=== PATIENT | female | born 1980 | race Caucasian/White ===

== ENCOUNTER 2016-12-16 10:42 | Emergency (ER) | payer MEDICAID, OTHER ==
[~2016-12-16] VITALS: Ht 160 cm; Wt 78.2 kg
[~2016-12-16 10:42] MED LIST: ASPI81 PO; BUPR-93 PO; INSU100V12 SQ; METF500T4 PO; PARO20TA24 PO
[2016-12-16] MEDS ORDERED: TRAM50TA4 PO (11:36)
[2016-12-16 11:41] LABS: GLUCOSE,POINT OF CARE 113 MG/DL (70-110)
[2016-12-16] MEDS ORDERED: SODIUM CHLORIDE 0.9% 1,000 ML IV ONE (12:15)
[2016-12-16] MEDS ORDERED: MORPHINE SULFATE 4 MG/ML SYRINGE IVP ONE (12:15)
[2016-12-16] MEDS ORDERED: ONDANSETRON HCL 4 MG/2 ML VIAL IVP ONE (12:15)
[2016-12-16 12:51] LABS: BASOPHILS % (AUTO) 0.3 % (0.0-2.0); EOSINOPHILS % (AUTO) 1.3 % (1.0-6.0); HEMATOCRIT 41.8 % (36-46); HEMOGLOBIN 13.9 g/dL (12.0-16.0); LYMPHOCYTES # (AUTO) 4.1 K/uL (1.0-4.8); LYMPHOCYTES % (AUTO) 34.8 % (22.0-44.0); MEAN CORPUSCULAR HEMOGLOBIN 28.7 pg (26.0-34.0); MEAN CORPUSCULAR HGB CONC 33.2 G/dL (31.0-37.0); MEAN CORPUSCULAR VOLUME 87 fL (80-100); MONOCYTES # (AUTO) 0.6 K/uL (0.1-1.0); MONOCYTES % (AUTO) 4.8 % (2.0-9.0); NEUTROPHILS # (AUTO) 6.9 K/uL (1.8-7.7); NEUTROPHILS % (AUTO) 58.8 % (40.0-70.0); PLATELET COUNT (AUTO) 366 K/uL (150-450); RED BLOOD CELL COUNT(AUTO) 4.83 MIL/uL (4.00-5.20); RED CELL DISTRIBUTION WIDTH 13.2 % (11.5-14.5); WHITE BLOOD COUNT (AUTO) 11.7 K/uL (4.5-11.0)
[2016-12-16 13:02] LABS: ANION GAP 8 mmol/L (8-16); CALCIUM, TOTAL 9.2 mg/dL (8.8-10.5); CARBON DIOXIDE 30 mmol/L (22-29); CHLORIDE 100 mmol/L (98-107); GLOMERULAR FILTR. RATE CALC > 60 mL/min (>60); POTASSIUM 3.4 mmol/L (3.5-5.1); SODIUM SERUM 138 mmol/L (136-145); UREA NITROGEN, BLOOD 8 mg/dL (7-18)
[2016-12-16 13:08] LABS: ALANINE AMINOTRANSFERASE 32 U/L (12-78); ALBUMIN 3.5 g/dL (3.4-5.0); ASPARTATE AMINOTRANSFERASE 19 U/L (15-37); BILIRUBIN,TOTAL 0.1 mg/dL (0.1-1.0); TOTAL PROTEIN, SERUM 8.1 g/dL (6.4-8.2)
[2016-12-16 13:12] LABS: PROTHROMBIN TIME 10.1 SEC (9.4-11.6)
[2016-12-16] MEDS ORDERED: POTASSIUM CHLORIDE 20 MEQ ER TABLET PO ONE (13:30)
[2016-12-16] MEDS ORDERED: HYDROmorphone 2 MG/ML SYRINGE IVP ONE (14:45)
[2016-12-16 15:02] LABS: APPEARANCE,URINE CLEAR (CLEAR); GLUCOSE, URINE (UA) NEGATIVE (NEGATIVE); KETONES,URINE NEGATIVE (NEGATIVE); LEUKOCYTE ESTERASE ,URINE NEGATIVE (NEGATIVE); OCCULT BLOOD,URINE NEGATIVE (NEGATIVE); PROTEIN,URINE NEGATIVE (NEGATIVE)
[2016-12-16 15:11] LABS: RBC,URINE 0-2 /HPF (0-2); SQUAMOUS EPITHELIAL CELL,UR Few /LPF (None Seen); WBC,URINE 0-2 /HPF (0-5)
[2016-12-16 15:21] VITALS: BP 113/75
[2016-12-16] MEDS ORDERED: KETOROLAC TROMETHAMINE 30 MG/ML VIAL IVP ONE (15:30)
== END 2016-12-16 15:55 | disposition home or self-care (01) ==
LOC: EMS 10:48
DX: N83.201 Unspecified ovarian cyst, right side (principal); E11.9 Type 2 diabetes mellitus without complications; K21.9 Gastro-esophageal reflux disease without esophagitis; Z87.891 Personal history of nicotine dependence; Z79.82 Long term (current) use of aspirin
CPT/HCPCS: 36415; 76830; 76856; 80053; 81001; 82962; 83690; 84703; 85025; 85610; 96361; 96374; 96375; 99285; J1170; J1885; J2270; J2405; J7030

== ENCOUNTER 2017-02-06 09:54 | Emergency (ER) | payer OTHER ==
[~2017-02-06] VITALS: Ht 157.5 cm; Wt 77.1 kg
[~2017-02-06 09:54] MED LIST changes: +TRAM50TA4 PO
[2017-02-06] MEDS ORDERED: LIRA0.6P SQ (10:02)
[2017-02-06] MEDS ORDERED: AMOX TR/POT CLAV 875 MG/125 MG TABLET PO ONE (10:30)
[2017-02-06] MEDS ORDERED: OxyCODONE HCL/ACETAMINOPHEN 5-325 MG TABLET PO ONE (10:30)
[2017-02-06] MEDS ORDERED: ONDANSETRON HCL 4 MG TABLET PO ONE (10:30)
[2017-02-06] MEDS ORDERED: POVIDONE-IODINE 15 ML SOLUTION UD TP ONE (11:15)
[2017-02-06 12:34] VITALS: BP 124/71
== END 2017-02-06 12:37 | disposition home or self-care (01) ==
LOC: EMS 10:01
DX: S61.051A Open bite of right thumb without damage to nail, initial encounter (principal); E11.9 Type 2 diabetes mellitus without complications; K21.9 Gastro-esophageal reflux disease without esophagitis; Z87.891 Personal history of nicotine dependence; W55.01XA Bitten by cat, initial encounter; Y93.89 Activity, other specified; Y92.89 Other specified places as the place of occurrence of the external cause; Y99.8 Other external cause status
CPT/HCPCS: 73130; 99284; Q0162

== ENCOUNTER 2017-03-30 09:34 | Emergency (ER) | payer OTHER ==
[~2017-03-30] VITALS: Ht 157.5 cm; Wt 78.2 kg
[~2017-03-30 09:34] MED LIST changes: -INSU100V12 SQ; +LIRA0.6P SQ
[2017-03-30] MEDS ORDERED: HUMLIS7525 SQ (09:42)
[2017-03-30] MEDS ORDERED: INSLAN SQ (09:42)
[2017-03-30 09:47] LABS: GLUCOSE,POINT OF CARE 360 MG/DL (70-110)
[2017-03-30 10:11] LABS: BASOPHILS # (AUTO) 0.06 K/uL (0.00-0.20); BASOPHILS % (AUTO) 0.7 % (0.0-2.0); EOSINOPHILS # (AUTO) 0.17 K/uL (0.00-0.70); EOSINOPHILS % (AUTO) 1.87 % (1.0-6.0); HEMATOCRIT 44.5 % (36-46); HEMOGLOBIN 14.5 g/dL (12.0-16.0); LYMPHOCYTES # (AUTO) 3.4 K/uL (1.0-4.8); LYMPHOCYTES % (AUTO) 38.3 % (22.0-44.0); MEAN CORPUSCULAR HGB CONC 32.5 G/dL (31.0-37.0); MEAN CORPUSCULAR VOLUME 86 fL (80-100); MONOCYTES # (AUTO) 0.3 K/uL (0.1-1.0); MONOCYTES % (AUTO) 3.9 % (2.0-9.0); NEUTROPHILS # (AUTO) 4.9 K/uL (1.8-7.7); NEUTROPHILS % (AUTO) 55.3 % (40.0-70.0); PLATELET COUNT (AUTO) 413 K/uL (150-450); RED BLOOD CELL COUNT(AUTO) 5.17 MIL/uL (4.00-5.20); RED CELL DISTRIBUTION WIDTH 13.3 % (11.5-14.5); WHITE BLOOD COUNT (AUTO) 8.9 K/uL (4.5-11.0)
[2017-03-30 10:20] LABS: ANION GAP 12 mmol/L (8-16); CALCIUM, TOTAL 9.1 mg/dL (8.8-10.5); CARBON DIOXIDE 24 mmol/L (22-29); CHLORIDE 100 mmol/L (98-107); CREATININE 0.85 mg/dL (0.60-1.30); GLOMERULAR FILTR. RATE CALC > 60 mL/min (>60); POTASSIUM 3.7 mmol/L (3.5-5.1); SODIUM SERUM 136 mmol/L (136-145); UREA NITROGEN, BLOOD 8 mg/dL (7-18)
[2017-03-30 10:27] LABS: ALANINE AMINOTRANSFERASE 41 U/L (12-78); ALBUMIN 3.5 g/dL (3.4-5.0); ASPARTATE AMINOTRANSFERASE 18 U/L (15-37); BILIRUBIN,TOTAL 0.2 mg/dL (0.1-1.0); TOTAL PROTEIN, SERUM 8.2 g/dL (6.4-8.2)
[2017-03-30 10:37] LABS: APPEARANCE,URINE CLEAR (CLEAR); GLUCOSE, URINE (UA) >=1000 mg/dL (NEGATIVE); KETONES,URINE NEGATIVE (NEGATIVE); LEUKOCYTE ESTERASE ,URINE NEGATIVE (NEGATIVE); OCCULT BLOOD,URINE NEGATIVE (NEGATIVE); PH,URINE 5.5 (5.0-8.0); PROTEIN,URINE NEGATIVE (NEGATIVE)
[2017-03-30 10:40] LABS: RBC,URINE 0-2 /HPF (0-2); SQUAMOUS EPITHELIAL CELL,UR Few /LPF (None Seen); WBC,URINE 0-2 /HPF (0-5)
[2017-03-30] MEDS ORDERED: SODIUM CHLORIDE 0.9% 1,000 ML IV ONE (11:30)
[2017-03-30] MEDS ORDERED: ONDANSETRON HCL 4 MG/2 ML VIAL IVP ONE (11:30)
[2017-03-30] MEDS ORDERED: HYDROmorphone 2 MG/ML SYRINGE IVP ONE (11:30)
[2017-03-30] MEDS ORDERED: BARIUM SULFATE 0.1% SUSPENSION 450 ML BOTTLE PO ONE (12:15)
[2017-03-30] MEDS ORDERED: IOVERSOL 350 MG/ML 100 ML VIAL ONE (12:30)
[2017-03-30] MEDS ORDERED: SODIUM CHLORIDE 0.9% 100 ML ONE (12:30)
[2017-03-30 14:48] VITALS: BP 108/75
== END 2017-03-30 15:19 | disposition home or self-care (01) ==
LOC: EMS 09:36
DX: G89.29 Other chronic pain (principal); E11.9 Type 2 diabetes mellitus without complications; F41.9 Anxiety disorder, unspecified; F11.10 Opioid abuse, uncomplicated; K21.9 Gastro-esophageal reflux disease without esophagitis; F32.9 Major depressive disorder, single episode, unspecified; G43.909 Migraine, unspecified, not intractable, without status migrainosus; Z79.4 Long term (current) use of insulin
CPT/HCPCS: 36415; 74177; 80053; 80307; 81001; 82962; 83690; 85025; 96361; 96374; 96375; 99285; J1170; J2405; J7030; J7050; Q9967; Z7610

== ENCOUNTER 2018-05-22 10:20 | Emergency (ER) | payer OTHER ==
[~2018-05-22] VITALS: Ht 160 cm; Wt 86.0 kg
[~2018-05-22 10:20] MED LIST changes: +HUMLIS7525 SQ; +INSLAN SQ; -METF500T4 PO; +METF500T6 PO
[2018-05-22 10:44] LABS: GLUCOSE,POINT OF CARE 352 MG/DL (70-110)
[2018-05-22] MEDS ORDERED: IBUP-2070 PO (10:52)
[2018-05-22] MEDS ORDERED: INSU100V SQ (10:52)
[2018-05-22] MEDS ORDERED: INSLAN SQ (10:52)
[2018-05-22] MEDS ORDERED: METHOCARBAMOL 500 MG TABLET PO ONE (12:45)
[2018-05-22] MEDS ORDERED: KETOROLAC TROMETHAMINE 60 MG/2 ML VIAL IM ONE (12:45)
[2018-05-22 14:15] VITALS: BP 111/68
== END 2018-05-22 14:17 | disposition home or self-care (01) ==
LOC: EMS 10:25
DX: M25.512 Pain in left shoulder (principal); F41.9 Anxiety disorder, unspecified; F32.9 Major depressive disorder, single episode, unspecified; E11.9 Type 2 diabetes mellitus without complications; G43.909 Migraine, unspecified, not intractable, without status migrainosus; M79.7 Fibromyalgia; Z90.49 Acquired absence of other specified parts of digestive tract; Z90.710 Acquired absence of both cervix and uterus; Z98.51 Tubal ligation status; Z87.891 Personal history of nicotine dependence; Z79.4 Long term (current) use of insulin
CPT/HCPCS: 82962; 96372; 99283; J1885

== ENCOUNTER 2019-10-20 17:27 | Inpatient (IN) | payer OTHER ==
[~2019-10-20] VITALS: Ht 162.6 cm; Wt 79.3 kg
[~2019-10-20 17:27] MED LIST changes: -ASPI81 PO; -BUPR-93 PO; -HUMLIS7525 SQ; +IBUP-2070 PO; +INSU100V SQ; -METF500T6 PO; -PARO20TA24 PO
[2019-10-20] MEDS ORDERED: NITR0.4T50 SL (17:42)
[2019-10-20] MEDS ORDERED: PREG50 PO (17:42)
[2019-10-20] MEDS ORDERED: HYDR-4455 PO (17:42)
[2019-10-20] MEDS ORDERED: DULO60CA44 PO (17:42)
[2019-10-20 17:49] LABS: GLUCOSE,POINT OF CARE 199 MG/DL (70-110)
[2019-10-20] MEDS ORDERED: IOVERSOL 320 MG/ML 100 ML VIAL ONE (17:58)
[2019-10-20] MEDS ORDERED: SODIUM CHLORIDE 0.9% 100 ML ONE (17:59)
[2019-10-20 18:07] LABS: BASOPHILS % (AUTO) 0.6 % (0.0-2.0); HEMATOCRIT 39.3 % (36-46); HEMOGLOBIN 13.2 g/dL (12.0-16.0); LYMPHOCYTES # (AUTO) 3.5 K/uL (1.0-4.8); LYMPHOCYTES % (AUTO) 36.6 % (22.0-44.0); MEAN CORPUSCULAR HEMOGLOBIN 28.3 pg (26.0-34.0); MEAN CORPUSCULAR HGB CONC 33.6 G/dL (31.0-37.0); MEAN CORPUSCULAR VOLUME 84 fL (80-100); MONOCYTES # (AUTO) 0.4 K/uL (0.1-1.0); MONOCYTES % (AUTO) 4.5 % (2.0-9.0); NEUTROPHILS # (AUTO) 5.2 K/uL (1.8-7.7); NEUTROPHILS % (AUTO) 54.3 % (40.0-70.0); PLATELET COUNT (AUTO) 412 K/uL (150-450); RED BLOOD CELL COUNT(AUTO) 4.67 MIL/uL (4.00-5.20); RED CELL DISTRIBUTION WIDTH 13.1 % (11.5-14.5)
[2019-10-20 18:19] LABS: ANION GAP 5 mmol/L (8-16); CALCIUM, TOTAL 8.7 mg/dL (8.8-10.5); CARBON DIOXIDE 29 mmol/L (22-29); CHLORIDE 103 mmol/L (98-107); CREATININE 0.69 mg/dL (0.60-1.30); GLOMERULAR FILTR. RATE CALC > 60 mL/min (>60); GLUCOSE,RANDOM 192 mg/dL (70-110); POTASSIUM 3.9 mmol/L (3.5-5.1); SODIUM SERUM 137 mmol/L (136-145); UREA NITROGEN, BLOOD 13 mg/dL (7-18)
[2019-10-20 18:27] LABS: ALANINE AMINOTRANSFERASE 24 U/L (12-78); ALBUMIN 3.1 g/dL (3.4-5.0); ALKALINE PHOSPHATASE 142 U/L (46-116); ASPARTATE AMINOTRANSFERASE 15 U/L (15-37); BILIRUBIN,TOTAL 0.1 mg/dL (0.1-1.0); HCG,QUANTITATIVE < 1 mIU/mL (0-6); TOTAL PROTEIN, SERUM 7.5 g/dL (6.4-8.2)
[2019-10-20 18:32] LABS: PROTHROMBIN TIME 9.9 SEC (9.4-11.6)
[2019-10-20] MEDS ORDERED: HYDR-4061 PO (19:55)
[2019-10-20] MEDS ORDERED: ASPIRIN 325 MG TABLET PO ONE ×2 (20:00)
[2019-10-20] MEDS ORDERED: ACETAMINOPHEN 325 MG TABLET PO PRN ×2 (20:00→22:45)
[2019-10-20] MEDS ORDERED: ONDANSETRON HCL 4 MG/2 ML VIAL IVP PRN ×2 (20:00→22:45)
[2019-10-20] MEDS ORDERED: 0.9% SODIUM CHLORIDE 10 ML SYRINGE IVP PRN (20:00)
[2019-10-20] MEDS ORDERED: IBUPROFEN 800 MG TABLET PO ONE (20:30)
[2019-10-20 22:30] VITALS: BP 110/74
[2019-10-20] MEDS ORDERED: HYDROCODONE/ACETAMINOPHEN 5-325 MG TABLET PO PRN (22:45)
[2019-10-20] MEDS ORDERED: MAGNESIUM HYDROXIDE SUSPENSION 30 ML UDCUP PO PRN (22:45)
[2019-10-20] MEDS ORDERED: MORPHINE SULFATE 2 MG/ML SYRINGE IVP PRN (22:45)
[2019-10-20] MEDS ORDERED: ZOLPIDEM TARTRATE 5 MG TABLET PO PRN (22:45)
[2019-10-20] MEDS ORDERED: SUMAtriptan SUCCINATE 25 MG TABLET PO PRN (22:45)
[2019-10-20] MEDS ORDERED: DEXTROSE 50%-WATER 25 GM/50 ML SYRINGE IVP PRN (22:45)
[2019-10-20] MEDS ORDERED: BISACODYL 10 MG RECTAL RECTAL SUPPOSITORY PR PRN (22:45)
[2019-10-20] MEDS ORDERED: PNEUMOCOCCAL VACCINE POLYVALENT 0.5 ML VIAL [PPSV23] IM ONE (23:00)
[2019-10-20 23:09] LABS: GLUCOMETER DEV NAME(LOC) 5N.1; GLUCOSE,POINT OF CARE 171 MG/DL (70-110)
[2019-10-20] MEDS: HEPARIN SODIUM,PORCINE 5,000 UNITS/ML VIAL SQ SCH (23:44)
[2019-10-21 04:15] VITALS: BP 101/61
[2019-10-21 07:01] LABS: BASOPHILS % (AUTO) 0.6 % (0.0-2.0); EOSINOPHILS % (AUTO) 4.2 % (1.0-6.0); HEMATOCRIT 37.2 % (36-46); HEMOGLOBIN 12.8 g/dL (12.0-16.0); LYMPHOCYTES # (AUTO) 3.7 K/uL (1.0-4.8); LYMPHOCYTES % (AUTO) 39.2 % (22.0-44.0); MEAN CORPUSCULAR HEMOGLOBIN 28.7 pg (26.0-34.0); MEAN CORPUSCULAR HGB CONC 34.4 G/dL (31.0-37.0); MEAN CORPUSCULAR VOLUME 84 fL (80-100); MONOCYTES # (AUTO) 0.5 K/uL (0.1-1.0); MONOCYTES % (AUTO) 4.9 % (2.0-9.0); NEUTROPHILS # (AUTO) 4.9 K/uL (1.8-7.7); NEUTROPHILS % (AUTO) 51.1 % (40.0-70.0); PLATELET COUNT (AUTO) 378 K/uL (150-450); RED BLOOD CELL COUNT(AUTO) 4.45 MIL/uL (4.00-5.20); RED CELL DISTRIBUTION WIDTH 13.2 % (11.5-14.5)
[2019-10-21] MEDS: INSULIN LISPRO 100 UNITS/ML SQ PRN ×2 (07:10→12:17)
[2019-10-21 07:25] LABS: ALANINE AMINOTRANSFERASE 22 U/L (12-78); ALBUMIN 2.8 g/dL (3.4-5.0); ALKALINE PHOSPHATASE 134 U/L (46-116); ANION GAP 5 mmol/L (8-16); ASPARTATE AMINOTRANSFERASE 13 U/L (15-37); BILIRUBIN,TOTAL 0.3 mg/dL (0.1-1.0); CALCIUM, TOTAL 8.6 mg/dL (8.8-10.5); CARBON DIOXIDE 29 mmol/L (22-29); CHLORIDE 103 mmol/L (98-107); CREATININE 0.68 mg/dL (0.60-1.30); GLOMERULAR FILTR. RATE CALC > 60 mL/min (>60); GLUCOSE,RANDOM 200 mg/dL (70-110); POTASSIUM 3.8 mmol/L (3.5-5.1); SODIUM SERUM 137 mmol/L (136-145); UREA NITROGEN, BLOOD 9 mg/dL (7-18)
[2019-10-21 07:55] VITALS: BP 103/74
[2019-10-21] MEDS ORDERED: PANTOPRAZOLE SODIUM 40 MG DR TABLET PO SCH (09:00)
[2019-10-21] MEDS ORDERED: DULoxetine HCL 60 MG CAPSULE PO SCH (09:00)
[2019-10-21] MEDS ORDERED: DOCUSATE SODIUM 100 MG CAPSULE PO SCH (09:00)
[2019-10-21] MEDS ORDERED: INSULIN GLARGINE,HUM.REC.ANLOG 100 UNITS/ML SQ SCH (09:00)
[2019-10-21] MEDS ORDERED: PREGABALIN 50 MG CAPSULE PO SCH (09:00)
[2019-10-21] MEDS: HEPARIN SODIUM,PORCINE 5,000 UNITS/ML VIAL SQ SCH (09:02)
[2019-10-21] MEDS ORDERED: SUMA25TA9 PO (09:53)
[2019-10-21 11:50] VITALS: BP 102/56
[2019-10-22 00:53] LABS: GLUCOMETER DEV NAME(LOC) 5N.1; GLUCOSE,POINT OF CARE 193 MG/DL (70-110)
[2019-10-22 00:53] LABS: GLUCOMETER DEV NAME(LOC) 5N.1; GLUCOSE,POINT OF CARE 343 MG/DL (70-110)
== END 2019-10-21 14:00 | disposition home or self-care (01) | DRG 47 ==
LOC: EMS 17:28 → 5N 20:11
PROVIDERS: ADMIT Internal Medicine; ATTEND Internal Medicine
DX: G45.9 Transient cerebral ischemic attack, unspecified (principal); E11.9 Type 2 diabetes mellitus without complications; F41.9 Anxiety disorder, unspecified; M79.7 Fibromyalgia; K21.9 Gastro-esophageal reflux disease without esophagitis; M19.90 Unspecified osteoarthritis, unspecified site; G43.109 Migraine with aura, not intractable, without status migrainosus; F32.9 Major depressive disorder, single episode, unspecified; Z87.891 Personal history of nicotine dependence; Z90.710 Acquired absence of both cervix and uterus; Z90.49 Acquired absence of other specified parts of digestive tract
CPT/HCPCS: 70496; 70551; 86850; 86900; 86901; 93005; 99291; J1644; J1815; J7050

== ENCOUNTER 2020-01-03 11:54 | Emergency (ER) | payer OTHER ==
[~2020-01-03] VITALS: Ht 162.6 cm; Wt 81.8 kg
[~2020-01-03 11:54] MED LIST changes: +DULO60CA44 PO; +HYDR-4061 PO; +NITR0.4T50 SL; +PREG50 PO; +SUMA25TA9 PO
[2020-01-03] MEDS ORDERED: BARIUM SULFATE 0.1% SUSPENSION 450 ML BOTTLE PO ONE (12:15)
[2020-01-03] MEDS ORDERED: SODIUM CHLORIDE 0.9% 2,000 ML IV ONE (12:15)
[2020-01-03] MEDS ORDERED: ONDANSETRON HCL 4 MG/2 ML VIAL IVP ONE (12:15)
[2020-01-03] MEDS ORDERED: HYDROmorphone 2 MG/ML SYRINGE IVP ONE (12:15)
[2020-01-03 12:18] LABS: GLUCOSE,POINT OF CARE 259 MG/DL (70-110)
[2020-01-03 12:28] LABS: BASOPHILS % (AUTO) 1.1 % (0.0-2.0); EOSINOPHILS % (AUTO) 1.3 % (1.0-6.0); HEMATOCRIT 41.1 % (36-46); HEMOGLOBIN 13.8 g/dL (12.0-16.0); LYMPHOCYTES # (AUTO) 3.6 K/uL (1.0-4.8); LYMPHOCYTES % (AUTO) 35.9 % (22.0-44.0); MEAN CORPUSCULAR HEMOGLOBIN 28.3 pg (26.0-34.0); MEAN CORPUSCULAR HGB CONC 33.5 G/dL (31.0-37.0); MEAN CORPUSCULAR VOLUME 85 fL (80-100); MONOCYTES # (AUTO) 0.4 K/uL (0.1-1.0); MONOCYTES % (AUTO) 3.8 % (2.0-9.0); NEUTROPHILS # (AUTO) 5.9 K/uL (1.8-7.7); NEUTROPHILS % (AUTO) 57.9 % (40.0-70.0); PLATELET COUNT (AUTO) 403 K/uL (150-450); RED BLOOD CELL COUNT(AUTO) 4.86 MIL/uL (4.00-5.20); RED CELL DISTRIBUTION WIDTH 14.4 % (11.5-14.5)
[2020-01-03 12:40] LABS: ANION GAP 7 mmol/L (8-16); CALCIUM, TOTAL 8.7 mg/dL (8.8-10.5); CARBON DIOXIDE 27 mmol/L (22-29); CHLORIDE 103 mmol/L (98-107); CREATININE 0.52 mg/dL (0.60-1.30); GLOMERULAR FILTR. RATE CALC > 60 mL/min (>60); GLUCOSE,RANDOM 252 mg/dL (70-110); SODIUM SERUM 137 mmol/L (136-145); UREA NITROGEN, BLOOD 13 mg/dL (7-18)
[2020-01-03 12:46] LABS: ALBUMIN 3.1 g/dL (3.4-5.0); ALKALINE PHOSPHATASE 148 U/L (46-116); ASPARTATE AMINOTRANSFERASE 14 U/L (15-37); BILIRUBIN,TOTAL 0.2 mg/dL (0.1-1.0); LIPASE 96 U/L (73-393); TOTAL PROTEIN, SERUM 7.3 g/dL (6.4-8.2)
[2020-01-03] MEDS ORDERED: SODIUM CHLORIDE 0.9% 100 ML ONE (12:50)
[2020-01-03] MEDS ORDERED: IOVERSOL 320 MG/ML 100 ML VIAL ONE (12:50)
[2020-01-03 12:58] LABS: ALANINE AMINOTRANSFERASE 28 U/L (12-78)
[2020-01-03 14:22] LABS: APPEARANCE,URINE CLEAR (CLEAR); BILIRUBIN,URINE NEGATIVE (NEGATIVE); GLUCOSE, URINE (UA) 500 mg/dL (NEGATIVE); KETONES,URINE NEGATIVE (NEGATIVE); LEUKOCYTE ESTERASE ,URINE NEGATIVE (NEGATIVE); NITRATE,URINE NEGATIVE (NEGATIVE); OCCULT BLOOD,URINE NEGATIVE (NEGATIVE); PH,URINE 5.5 (5.0-8.0); PROTEIN,URINE NEGATIVE (NEGATIVE); UROBILINOGEN,URINE 0.2 mg/dL (<=1.0)
[2020-01-03 14:33] LABS: BACTERIA,URINE None Seen /HPF (None Seen); RBC,URINE None Seen /HPF (0-2); WBC,URINE None Seen /HPF (0-5)
[2020-01-03] MEDS ORDERED: HYDROCODONE/ACETAMINOPHEN 5-325 MG TABLET PO ONE (16:30)
[2020-01-03 16:46] VITALS: BP 123/77
== END 2020-01-03 16:49 | disposition home or self-care (01) ==
LOC: EMS 11:55
DX: K52.9 Noninfective gastroenteritis and colitis, unspecified (principal); E11.65 Type 2 diabetes mellitus with hyperglycemia; R42 Dizziness and giddiness; R53.1 Weakness; G43.909 Migraine, unspecified, not intractable, without status migrainosus; K21.9 Gastro-esophageal reflux disease without esophagitis; M19.90 Unspecified osteoarthritis, unspecified site; F41.9 Anxiety disorder, unspecified; Z90.49 Acquired absence of other specified parts of digestive tract; Z90.710 Acquired absence of both cervix and uterus; Z98.51 Tubal ligation status; Z98.890 Other specified postprocedural states; Z87.891 Personal history of nicotine dependence; Z79.899 Other long term (current) drug therapy; Z79.4 Long term (current) use of insulin; Z86.73 Personal history of transient ischemic attack (TIA), and cerebral infarction without residual deficits
CPT/HCPCS: 36415; 74177; 80053; 81001; 82962; 83690; 85025; 96361; 96374; 96375; 99285; J1170; J2405; J7030; J7050; Q9967

== ENCOUNTER 2020-05-08 17:07 | Emergency (ER) | payer OTHER ==
[~2020-05-08] VITALS: Ht 162.6 cm; Wt 73.6 kg
[2020-05-08] MEDS ORDERED: QUET100T PO (17:25)
[2020-05-08] MEDS ORDERED: METF-960 PO (17:25)
[2020-05-08] MEDS ORDERED: FLUO-191 PO (17:25)
[2020-05-08] MEDS ORDERED: BUSP15 PO (17:25)
[2020-05-08] MEDS ORDERED: TIZA2CAP PO (17:25)
[2020-05-08] MEDS ORDERED: DOCU-342 PO (17:25)
[2020-05-08] MEDS ORDERED: ALPR0.5T8 PO (17:25)
[2020-05-08] MEDS ORDERED: KETOROLAC TROMETHAMINE 30 MG/ML VIAL IVP ONE (18:00)
[2020-05-08 18:44] LABS: BASOPHILS % (AUTO) 1.2 % (0.0-2.0); EOSINOPHILS % (AUTO) 1.1 % (1.0-6.0); HEMATOCRIT 43.7 % (36-46); HEMOGLOBIN 14.8 g/dL (12.0-16.0); LYMPHOCYTES % (AUTO) 37.4 % (22.0-44.0); MEAN CORPUSCULAR HEMOGLOBIN 28.7 pg (26.0-34.0); MEAN CORPUSCULAR VOLUME 84 fL (80-100); MONOCYTES # (AUTO) 0.5 K/uL (0.1-1.0); MONOCYTES % (AUTO) 3.9 % (2.0-9.0); NEUTROPHILS # (AUTO) 7.5 K/uL (1.8-7.7); NEUTROPHILS % (AUTO) 56.4 % (40.0-70.0); PLATELET COUNT (AUTO) 419 K/uL (150-450); RED BLOOD CELL COUNT(AUTO) 5.18 MIL/uL (4.00-5.20); RED CELL DISTRIBUTION WIDTH 13.3 % (11.5-14.5)
[2020-05-08 19:00] LABS: GLUCOSE,POINT OF CARE 179 MG/DL (70-110)
[2020-05-08 19:02] LABS: D-DIMER 0.54 mg/L FEU (0.00-0.50); PROTHROMBIN TIME 9.9 SEC (9.4-11.6)
[2020-05-08 19:12] LABS: B-TYPE NATRIURETIC PEPTIDE < 5 pg/mL (0-100)
[2020-05-08 19:14] LABS: APPEARANCE,URINE CLEAR (CLEAR); BILIRUBIN,URINE NEGATIVE (NEGATIVE); GLUCOSE, URINE (UA) >=1000 mg/dL (NEGATIVE); KETONES,URINE NEGATIVE (NEGATIVE); LEUKOCYTE ESTERASE ,URINE NEGATIVE (NEGATIVE); NITRATE,URINE NEGATIVE (NEGATIVE); OCCULT BLOOD,URINE NEGATIVE (NEGATIVE); PH,URINE 5.5 (5.0-8.0); PROTEIN,URINE NEGATIVE (NEGATIVE); UROBILINOGEN,URINE 0.2 mg/dL (<=1.0)
[2020-05-08 19:20] LABS: ANION GAP 15 mmol/L (8-16); CALCIUM, TOTAL 9.7 mg/dL (8.8-10.5); CARBON DIOXIDE 23 mmol/L (22-29); CHLORIDE 99 mmol/L (98-107); CREATININE 0.83 mg/dL (0.60-1.30); GLOMERULAR FILTR. RATE CALC > 60 mL/min (>60); GLUCOSE,RANDOM 238 mg/dL (70-110); POTASSIUM 3.5 mmol/L (3.5-5.1); SODIUM SERUM 137 mmol/L (136-145); UREA NITROGEN, BLOOD 10 mg/dL (7-18)
[2020-05-08 19:20] LABS: AMPHET/METH SCREEN,URINE NEGATIVE (NEGATIVE); BARBITURATE SCREEN, URINE NEGATIVE (NEGATIVE); BENZODIAZEPINES SCREEN,URINE NEGATIVE (NEGATIVE); CANNABINOID SCREEN,URINE NEGATIVE (NEGATIVE); COCAINE SCREEN,URINE NEGATIVE (NEGATIVE); METHADONE SCREEN, URINE NEGATIVE (NEGATIVE); OPIATE SCREEN,URINE NEGATIVE (NEGATIVE)
[2020-05-08 19:21] LABS: PHENCYCLIDINE SCREEN,URINE NEGATIVE (NEGATIVE)
[2020-05-08 19:25] LABS: RBC,URINE None Seen /HPF (0-2)
[2020-05-08 19:26] LABS: ALANINE AMINOTRANSFERASE 27 U/L (12-78); ALBUMIN 3.7 g/dL (3.4-5.0); ALKALINE PHOSPHATASE 164 U/L (46-116); ASPARTATE AMINOTRANSFERASE 12 U/L (15-37); BILIRUBIN,TOTAL 0.2 mg/dL (0.1-1.0); CREATINE KINASE, TOTAL ONLY 23 U/L (26-192); TOTAL PROTEIN, SERUM 8.7 g/dL (6.4-8.2)
[2020-05-08 19:26] LABS: BACTERIA,URINE None Seen /HPF (None Seen); SQUAMOUS EPITHELIAL CELL,UR Few /LPF (None Seen); WBC,URINE None Seen /HPF (0-5); YEAST,URINE None Seen /HPF (None Seen)
[2020-05-08] MEDS ORDERED: SODIUM CHLORIDE 0.9% 1,000 ML IV ONE (19:30)
[2020-05-08] MEDS ORDERED: IOVERSOL 350 MG/ML 100 ML VIAL ONE (20:04)
[2020-05-08] MEDS ORDERED: SODIUM CHLORIDE 0.9% 100 ML ONE (20:04)
[2020-05-08 21:10] VITALS: BP 104/70
== END 2020-05-08 21:52 | disposition home or self-care (01) ==
LOC: EMS 17:08
DX: R07.89 Other chest pain (principal); R11.0 Nausea; F41.9 Anxiety disorder, unspecified; F32.9 Major depressive disorder, single episode, unspecified; E11.9 Type 2 diabetes mellitus without complications; K21.9 Gastro-esophageal reflux disease without esophagitis; I25.2 Old myocardial infarction; G43.909 Migraine, unspecified, not intractable, without status migrainosus; Z90.89 Acquired absence of other organs; Z90.710 Acquired absence of both cervix and uterus; Z87.891 Personal history of nicotine dependence; Z79.84 Long term (current) use of oral hypoglycemic drugs; Z79.4 Long term (current) use of insulin
CPT/HCPCS: 36415; 71045; 71275; 80053; 80307; 81001; 82550; 82962; 83880; 84484; 85025; 85379; 85610; 85730; 93005; 96374; 99285; J1885; J7030; J7050; Q9967

== ENCOUNTER 2021-04-12 12:48 | Emergency (ER) | payer OTHER ==
[~2021-04-12] VITALS: Ht 157.5 cm; Wt 72.7 kg
[~2021-04-12 12:48] MED LIST changes: +ALPR0.5T8 PO; +AMOX1TAB16 PO; +ASPI-1450 PO; +ATOR40TA28 PO; +BUSP15 PO; +DOCU-350 PO; -DULO60CA44 PO; +FLUO-191 PO; -LIRA0.6P SQ; +METF-960 PO; -SUMA25TA9 PO; +TIZA2CAP PO; -TRAM50TA4 PO
[2021-04-12 14:22] LABS: GLUCOSE,POINT OF CARE 183 MG/DL (70-110)
[2021-04-12] MEDS ORDERED: PREG75 PO (14:42)
[2021-04-12] MEDS ORDERED: TraMADol HCL 50 MG TABLET PO ONE (14:45)
[2021-04-12 15:39] LABS: APPEARANCE,URINE CLEAR (CLEAR); BILIRUBIN,URINE NEGATIVE (NEGATIVE); GLUCOSE, URINE (UA) >=1000 mg/dL (NEGATIVE); KETONES,URINE NEGATIVE (NEGATIVE); LEUKOCYTE ESTERASE ,URINE NEGATIVE (NEGATIVE); NITRATE,URINE NEGATIVE (NEGATIVE); OCCULT BLOOD,URINE NEGATIVE (NEGATIVE); PROTEIN,URINE NEGATIVE (NEGATIVE)
[2021-04-12 16:08] LABS: BACTERIA,URINE None Seen /HPF (None Seen); RBC,URINE None Seen /HPF (0-2); WBC,URINE 0-2 /HPF (0-5); YEAST,URINE Rare /HPF (None Seen)
[2021-04-12 16:09] LABS: SQUAMOUS EPITHELIAL CELL,UR Few /LPF (None Seen)
[2021-04-12 16:32] LABS: BASOPHILS % (AUTO) 0.5 % (0.0-2.0); EOSINOPHILS % (AUTO) 2.5 % (1.0-6.0); HEMATOCRIT 39.6 % (36-46); HEMOGLOBIN 13.4 g/dL (12.0-16.0); LYMPHOCYTES # (AUTO) 3.4 K/uL (1.0-4.8); LYMPHOCYTES % (AUTO) 31.8 % (22.0-44.0); MEAN CORPUSCULAR HGB CONC 33.7 G/dL (31.0-37.0); MEAN CORPUSCULAR VOLUME 86 fL (80-100); MONOCYTES # (AUTO) 0.5 K/uL (0.1-1.0); MONOCYTES % (AUTO) 4.4 % (2.0-9.0); NEUTROPHILS # (AUTO) 6.5 K/uL (1.8-7.7); NEUTROPHILS % (AUTO) 60.8 % (40.0-70.0); PLATELET COUNT (AUTO) 399 K/uL (150-450); RED BLOOD CELL COUNT(AUTO) 4.61 MIL/uL (4.00-5.20); RED CELL DISTRIBUTION WIDTH 13.3 % (11.5-14.5)
[2021-04-12 16:45] LABS: ANION GAP 9 mmol/L (8-16); CALCIUM, TOTAL 8.7 mg/dL (8.8-10.5); CARBON DIOXIDE 28 mmol/L (22-29); CHLORIDE 103 mmol/L (98-107); CREATININE 0.73 mg/dL (0.60-1.30); GLOMERULAR FILTR. RATE CALC > 60 mL/min (>60); GLUCOSE,RANDOM 172 mg/dL (70-110); POTASSIUM 3.8 mmol/L (3.5-5.1); SODIUM SERUM 140 mmol/L (136-145); UREA NITROGEN, BLOOD 14 mg/dL (7-18)
[2021-04-12 16:50] LABS: ALANINE AMINOTRANSFERASE 24 U/L (12-78); ALBUMIN 3.3 g/dL (3.4-5.0); ALKALINE PHOSPHATASE 133 U/L (46-116); ASPARTATE AMINOTRANSFERASE 12 U/L (15-37); BILIRUBIN,TOTAL 0.3 mg/dL (0.1-1.0); CREATINE KINASE, TOTAL ONLY 27 U/L (26-192); TOTAL PROTEIN, SERUM 7.1 g/dL (6.4-8.2)
[2021-04-12 18:12] VITALS: BP 117/91
== END 2021-04-12 18:14 | disposition home or self-care (01) ==
LOC: EMS 12:51
DX: G89.29 Other chronic pain (principal); F41.9 Anxiety disorder, unspecified; M25.511 Pain in right shoulder; F32.9 Major depressive disorder, single episode, unspecified; E11.9 Type 2 diabetes mellitus without complications; K21.9 Gastro-esophageal reflux disease without esophagitis; I25.2 Old myocardial infarction; G43.909 Migraine, unspecified, not intractable, without status migrainosus; F17.210 Nicotine dependence, cigarettes, uncomplicated; Z90.710 Acquired absence of both cervix and uterus; Z79.4 Long term (current) use of insulin; Z79.82 Long term (current) use of aspirin
CPT/HCPCS: 80053; 81001; 82550; 82962; 84484; 85025; 99285

== ENCOUNTER 2021-08-02 11:48 | Emergency (ER) | payer OTHER ==
[~2021-08-02] VITALS: Ht 160 cm; Wt 72.7 kg
[~2021-08-02 11:48] MED LIST changes: -AMOX1TAB16 PO; -HYDR-4061 PO; -PREG50 PO; +PREG75 PO
[2021-08-02 14:23] LABS: BASOPHILS % (AUTO) 0.7 % (0.0-2.0); EOSINOPHILS % (AUTO) 2.7 % (1.0-6.0); HEMATOCRIT 41.7 % (36-46); HEMOGLOBIN 13.8 g/dL (12.0-16.0); LYMPHOCYTES # (AUTO) 3.7 K/uL (1.0-4.8); LYMPHOCYTES % (AUTO) 35.4 % (22.0-44.0); MEAN CORPUSCULAR HEMOGLOBIN 28.3 pg (26.0-34.0); MEAN CORPUSCULAR HGB CONC 33.1 G/dL (31.0-37.0); MEAN CORPUSCULAR VOLUME 86 fL (80-100); MONOCYTES # (AUTO) 0.4 K/uL (0.1-1.0); MONOCYTES % (AUTO) 3.8 % (2.0-9.0); NEUTROPHILS % (AUTO) 57.4 % (40.0-70.0); PLATELET COUNT (AUTO) 398 K/uL (150-450); RED BLOOD CELL COUNT(AUTO) 4.88 MIL/uL (4.00-5.20); RED CELL DISTRIBUTION WIDTH 13.6 % (11.5-14.5)
[2021-08-02 14:27] LABS: APPEARANCE,URINE CLEAR (CLEAR); BILIRUBIN,URINE NEGATIVE (NEGATIVE); GLUCOSE, URINE (UA) >=1000 mg/dL (NEGATIVE); KETONES,URINE TRACE mg/dL (NEGATIVE); LEUKOCYTE ESTERASE ,URINE NEGATIVE (NEGATIVE); NITRATE,URINE NEGATIVE (NEGATIVE); OCCULT BLOOD,URINE NEGATIVE (NEGATIVE); PROTEIN,URINE NEGATIVE (NEGATIVE); UROBILINOGEN,URINE 0.2 mg/dL (<=1.0)
[2021-08-02] MEDS ORDERED: ONDANSETRON HCL 4 MG/2 ML VIAL IVP ONE (14:30)
[2021-08-02] MEDS ORDERED: KETOROLAC TROMETHAMINE 30 MG/ML VIAL IVP ONE (14:30)
[2021-08-02] MEDS ORDERED: TIZA4TAB6 PO (14:32)
[2021-08-02] MEDS ORDERED: BUPR-49 PO (14:32)
[2021-08-02 14:36] LABS: ANION GAP 5 mmol/L (8-16); CALCIUM, TOTAL 8.8 mg/dL (8.8-10.5); CARBON DIOXIDE 28 mmol/L (22-29); CHLORIDE 101 mmol/L (98-107); CREATININE 0.69 mg/dL (0.60-1.30); GLOMERULAR FILTR. RATE CALC > 60 mL/min (>60); GLUCOSE,RANDOM 286 mg/dL (70-110); POTASSIUM 4.1 mmol/L (3.5-5.1); SODIUM SERUM 134 mmol/L (136-145); UREA NITROGEN, BLOOD 10 mg/dL (7-18)
[2021-08-02 14:47] LABS: SQUAMOUS EPITHELIAL CELL,UR Few /LPF (None Seen)
[2021-08-02 14:47] LABS: ALBUMIN 3.2 g/dL (3.4-5.0); ALKALINE PHOSPHATASE 158 U/L (46-116); ASPARTATE AMINOTRANSFERASE 22 U/L (15-37); BILIRUBIN,TOTAL 0.2 mg/dL (0.1-1.0); HCG,QUANTITATIVE < 1 mIU/mL (0-6); LIPASE 111 U/L (73-393); TOTAL PROTEIN, SERUM 7.6 g/dL (6.4-8.2)
[2021-08-02 14:49] LABS: YEAST,URINE Few /HPF (None Seen)
[2021-08-02 14:50] LABS: BACTERIA,URINE None Seen /HPF (None Seen); RBC,URINE None Seen /HPF (0-2); WBC,URINE None Seen /HPF (0-5)
[2021-08-02] MEDS ORDERED: IOHEXOL 350 MG/ML 100 ML VIAL ONE (14:50)
[2021-08-02] MEDS ORDERED: SODIUM CHLORIDE 0.9% 100 ML ONE (14:50)
[2021-08-02 14:57] LABS: ALANINE AMINOTRANSFERASE 43 U/L (12-78)
[2021-08-02 16:14] VITALS: BP 124/79
== END 2021-08-02 16:33 | disposition home or self-care (01) ==
LOC: EMS 11:48
DX: R10.31 Right lower quadrant pain (principal); R11.0 Nausea; R81 Glycosuria; F41.9 Anxiety disorder, unspecified; F32.9 Major depressive disorder, single episode, unspecified; E11.9 Type 2 diabetes mellitus without complications; K21.9 Gastro-esophageal reflux disease without esophagitis; I25.2 Old myocardial infarction; G43.909 Migraine, unspecified, not intractable, without status migrainosus; F17.210 Nicotine dependence, cigarettes, uncomplicated; Z90.710 Acquired absence of both cervix and uterus; Z90.89 Acquired absence of other organs; Z79.4 Long term (current) use of insulin; Z79.82 Long term (current) use of aspirin
CPT/HCPCS: 36415; 74177; 76856; 80053; 81001; 82962; 83690; 84702; 85025; 96374; 96375; 99285; J1885; J2405; Q9967; J7050

== ENCOUNTER 2021-08-07 21:43 | Inpatient (IN) | payer OTHER ==
[~2021-08-07] VITALS: Ht 157.5 cm; Wt 74.8 kg
[~2021-08-07 21:43] MED LIST changes: +BUPR-49 PO; -TIZA2CAP PO; +TIZA4TAB6 PO
[2021-08-07] MEDS ORDERED: IOHEXOL 350 MG/ML 100 ML VIAL ONE (21:58)
[2021-08-07] MEDS ORDERED: SODIUM CHLORIDE 0.9% 100 ML ONE (21:58)
[2021-08-07] MEDS ORDERED: SODIUM CHLORIDE 0.9% 1,000 ML IV ONE (22:30)
[2021-08-07] MEDS ORDERED: INSULIN REGULAR, HUMAN 100 UNITS/ML IVP ONE (22:30)
[2021-08-07 22:38] LABS: HEMOGLOBIN 12.6 g/dL (12.0-16.0); LYMPHOCYTES # (AUTO) 3.9 K/uL (1.0-4.8); LYMPHOCYTES % (AUTO) 37.7 % (22.0-44.0); MEAN CORPUSCULAR HEMOGLOBIN 28.6 pg (26.0-34.0); MEAN CORPUSCULAR HGB CONC 33.1 G/dL (31.0-37.0); MEAN CORPUSCULAR VOLUME 87 fL (80-100); MONOCYTES # (AUTO) 0.6 K/uL (0.1-1.0); MONOCYTES % (AUTO) 5.6 % (2.0-9.0); NEUTROPHILS # (AUTO) 5.5 K/uL (1.8-7.7); NEUTROPHILS % (AUTO) 52.7 % (40.0-70.0); PLATELET COUNT (AUTO) 369 K/uL (150-450); RED CELL DISTRIBUTION WIDTH 13.8 % (11.5-14.5)
[2021-08-07] MEDS ORDERED: ACETAMINOPHEN 325 MG TABLET PO PRN (22:45)
[2021-08-07] MEDS ORDERED: ONDANSETRON HCL 4 MG/2 ML VIAL IVP PRN ×2 (22:45→23:45)
[2021-08-07 22:46] LABS: PROTHROMBIN TIME 10.6 SEC (9.4-11.6)
[2021-08-07 22:47] LABS: ALANINE AMINOTRANSFERASE 32 U/L (12-78); ALBUMIN 2.6 g/dL (3.4-5.0); ALKALINE PHOSPHATASE 141 U/L (46-116); ANION GAP 5 mmol/L (8-16); ASPARTATE AMINOTRANSFERASE 14 U/L (15-37); BILIRUBIN,TOTAL 0.2 mg/dL (0.1-1.0); CALCIUM, TOTAL 7.9 mg/dL (8.8-10.5); CARBON DIOXIDE 25 mmol/L (22-29); CHLORIDE 98 mmol/L (98-107); CREATININE 0.91 mg/dL (0.60-1.30); GLOMERULAR FILTR. RATE CALC > 60 mL/min (>60); POTASSIUM 4.8 mmol/L (3.5-5.1); SODIUM SERUM 128 mmol/L (136-145); TOTAL PROTEIN, SERUM 6.3 g/dL (6.4-8.2); UREA NITROGEN, BLOOD 11 mg/dL (7-18)
[2021-08-07 22:50] LABS: GLUCOSE,RANDOM 460 mg/dL (70-110)
[2021-08-07 22:56] LABS: COVID AG,FIA SOURCE NASOPHARYNGEAL
[2021-08-07] MEDS ORDERED: MAGNESIUM HYDROXIDE SUSPENSION 30 ML UDCUP PO PRN (23:45)
[2021-08-07] MEDS ORDERED: ZOLPIDEM TARTRATE 5 MG TABLET PO PRN (23:45)
[2021-08-07] MEDS ORDERED: BusPIRone HCL 15 MG TABLET PO PRN (23:45)
[2021-08-07] MEDS ORDERED: MORPHINE SULFATE 2 MG/ML SYRINGE IVP PRN (23:45)
[2021-08-07] MEDS ORDERED: BISACODYL 10 MG RECTAL RECTAL SUPPOSITORY PR PRN (23:45)
[2021-08-07] MEDS ORDERED: HYDROCODONE/ACETAMINOPHEN 5-325 MG TABLET PO PRN (23:45)
[2021-08-07] MEDS: HEPARIN SODIUM,PORCINE 5,000 UNITS/ML VIAL SQ SCH (23:58)
[2021-08-08 00:08] LABS: GLUCOMETER DEV NAME(LOC) ERT.5; GLUCOSE,POINT OF CARE 262 MG/DL (70-110)
[2021-08-08 04:10] VITALS: BP 114/71
[2021-08-08 05:55] LABS: GLUCOMETER DEV NAME(LOC) 5S.2B; GLUCOSE,POINT OF CARE 291 MG/DL (70-110)
[2021-08-08] MEDS ORDERED: DEXTROSE 50%-WATER 25 GM/50 ML SYRINGE IVP PRN (06:15)
[2021-08-08] MEDS ORDERED: SUMAtriptan SUCCINATE 25 MG TABLET PO PRN (06:15)
[2021-08-08] MEDS: INSULIN LISPRO 100 UNITS/ML SQ PRN ×4 (06:27→20:20)
[2021-08-08 06:57] LABS: BASOPHILS % (AUTO) 0.7 % (0.0-2.0); HEMATOCRIT 37.6 % (36-46); HEMOGLOBIN 12.6 g/dL (12.0-16.0); LYMPHOCYTES # (AUTO) 3.9 K/uL (1.0-4.8); LYMPHOCYTES % (AUTO) 41.6 % (22.0-44.0); MEAN CORPUSCULAR HEMOGLOBIN 28.5 pg (26.0-34.0); MEAN CORPUSCULAR HGB CONC 33.5 G/dL (31.0-37.0); MEAN CORPUSCULAR VOLUME 85 fL (80-100); MONOCYTES # (AUTO) 0.5 K/uL (0.1-1.0); MONOCYTES % (AUTO) 5.2 % (2.0-9.0); NEUTROPHILS # (AUTO) 4.5 K/uL (1.8-7.7); NEUTROPHILS % (AUTO) 48.5 % (40.0-70.0); PLATELET COUNT (AUTO) 341 K/uL (150-450); RED BLOOD CELL COUNT(AUTO) 4.44 MIL/uL (4.00-5.20); RED CELL DISTRIBUTION WIDTH 13.7 % (11.5-14.5)
[2021-08-08 07:17] LABS: ANION GAP 10 mmol/L (8-16); CALCIUM, TOTAL 8.2 mg/dL (8.8-10.5); CARBON DIOXIDE 26 mmol/L (22-29); CHLORIDE 106 mmol/L (98-107); CHOLESTEROL 163 mg/dL (131-200); CREATININE 0.56 mg/dL (0.60-1.30); GLOMERULAR FILTR. RATE CALC > 60 mL/min (>60); GLUCOSE,RANDOM 287 mg/dL (70-110); HDL CHOLESTEROL 27 mg/dL (40-60); LDL CHOL (CALC.) 100 mg/dL (0-130); POTASSIUM 3.6 mmol/L (3.5-5.1); SODIUM SERUM 142 mmol/L (136-145); TRIGLYCERIDES 179 mg/dL (15-150); UREA NITROGEN, BLOOD 9 mg/dL (7-18)
[2021-08-08] MEDS: MetFORMIN HCL 500 MG TABLET PO SCH ×2 (08:00→17:49)
[2021-08-08] MEDS: TiZANidine HCL 4 MG TABLET PO SCH ×2 (08:20→20:15)
[2021-08-08] MEDS: FLUoxetine HCL 20 MG CAPSULE PO SCH (08:20)
[2021-08-08] MEDS: DOCUSATE SODIUM 100 MG CAPSULE PO SCH ×2 (08:20→20:15)
[2021-08-08] MEDS: PANTOPRAZOLE SODIUM 40 MG DR TABLET PO SCH (08:20)
[2021-08-08] MEDS: PREGABALIN 75 MG CAPSULE PO SCH ×3 (08:20→20:15)
[2021-08-08] MEDS: ASPIRIN 81 MG CHEWABLE TABLET PO SCH (08:21)
[2021-08-08] MEDS: HEPARIN SODIUM,PORCINE 5,000 UNITS/ML VIAL SQ SCH ×2 (08:21→15:56)
[2021-08-08] MEDS: BuPROPion HCL XL 150 MG ER TABLET PO SCH (08:21)
[2021-08-08] MEDS: INSULIN GLARGINE,HUM.REC.ANLOG 100 UNITS/ML SQ SCH ×2 (08:27→20:24)
[2021-08-08 08:40] VITALS: BP 106/62
[2021-08-08] MEDS ORDERED: KETOROLAC TROMETHAMINE 10 MG TABLET PO PRN (10:45)
[2021-08-08] MEDS ORDERED: GADOTERATE MEGLUMINE 10 MMOL/20 ML VIAL IVP ONE (10:55)
[2021-08-08 11:50] VITALS: BP 110/75
[2021-08-08 19:41] VITALS: BP 114/70
[2021-08-08] MEDS: ACETAMINOPHEN 325 MG TABLET PO PRN (20:16)
[2021-08-08] MEDS ORDERED: ATORVASTATIN CALCIUM 40 MG TABLET PO SCH (21:00)
[2021-08-08] MEDS ORDERED: DICLOFENAC SODIUM 50 MG DR TABLET PO PRN (21:15)
[2021-08-08] MEDS ORDERED: TOPIRAMATE 25 MG TABLET PO SCH (21:15)
[2021-08-08 22:38] LABS: GLUCOMETER DEV NAME(LOC) 5S.1; GLUCOSE,POINT OF CARE 321 MG/DL (70-110)
[2021-08-08 22:38] LABS: GLUCOMETER DEV NAME(LOC) 5S.1; GLUCOSE,POINT OF CARE 381 MG/DL (70-110)
[2021-08-08 22:38] LABS: GLUCOMETER DEV NAME(LOC) 5S.1; GLUCOSE,POINT OF CARE 238 MG/DL (70-110)
[2021-08-09 00:07] VITALS: BP 105/66
[2021-08-09 04:44] VITALS: BP 106/64
[2021-08-09] MEDS: ACETAMINOPHEN 325 MG TABLET PO PRN (06:09)
[2021-08-09] MEDS: INSULIN LISPRO 100 UNITS/ML SQ PRN ×3 (06:11→17:18)
[2021-08-09 07:28] VITALS: BP 102/66
[2021-08-09] MEDS: MetFORMIN HCL 500 MG TABLET PO SCH ×2 (07:51→15:37)
[2021-08-09] MEDS: PANTOPRAZOLE SODIUM 40 MG DR TABLET PO SCH (08:43)
[2021-08-09] MEDS: DOCUSATE SODIUM 100 MG CAPSULE PO SCH (08:43)
[2021-08-09] MEDS: ASPIRIN 81 MG CHEWABLE TABLET PO SCH (08:43)
[2021-08-09] MEDS: PREGABALIN 75 MG CAPSULE PO SCH ×2 (08:43→17:16)
[2021-08-09] MEDS: FLUoxetine HCL 20 MG CAPSULE PO SCH (08:44)
[2021-08-09] MEDS: BuPROPion HCL XL 150 MG ER TABLET PO SCH (08:44)
[2021-08-09] MEDS: TiZANidine HCL 4 MG TABLET PO SCH (08:44)
[2021-08-09] MEDS: HEPARIN SODIUM,PORCINE 5,000 UNITS/ML VIAL SQ SCH ×3 (08:44→17:16)
[2021-08-09] MEDS: INSULIN GLARGINE,HUM.REC.ANLOG 100 UNITS/ML SQ SCH (08:51)
[2021-08-09 11:14] VITALS: BP 89/59
[2021-08-09] MEDS ORDERED: TOPI25 PO (12:53)
[2021-08-09] MEDS ORDERED: DICL50TA9 PO (12:54)
[2021-08-09 15:11] VITALS: BP 92/56
[2021-08-09 15:40] LABS: GLUCOMETER DEV NAME(LOC) 5S.1; GLUCOSE,POINT OF CARE 376 MG/DL (70-110)
[2021-08-10 07:56] LABS: GLUCOMETER DEV NAME(LOC) 5S.2B; GLUCOSE,POINT OF CARE 226 MG/DL (70-110)
[2021-08-10 07:56] LABS: GLUCOMETER DEV NAME(LOC) 5S.2B; GLUCOSE,POINT OF CARE 203 MG/DL (70-110)
== END 2021-08-09 19:20 | disposition home or self-care (01) | DRG 54 ==
LOC: EMS 21:45 → 5S 08-08 01:32
PROVIDERS: ADMIT Internal Medicine; ATTEND Internal Medicine
DX: G43.909 Migraine, unspecified, not intractable, without status migrainosus (principal); E87.1 Hypo-osmolality and hyponatremia; E11.65 Type 2 diabetes mellitus with hyperglycemia; E66.3 Overweight; E78.5 Hyperlipidemia, unspecified; F41.9 Anxiety disorder, unspecified; I10 Essential (primary) hypertension; Z86.73 Personal history of transient ischemic attack (TIA), and cerebral infarction without residual deficits; Z87.891 Personal history of nicotine dependence; Z90.710 Acquired absence of both cervix and uterus; Z79.899 Other long term (current) drug therapy; Z68.30 Body mass index [BMI] 30.0-30.9, adult; F32.9 Major depressive disorder, single episode, unspecified; K21.9 Gastro-esophageal reflux disease without esophagitis; M19.90 Unspecified osteoarthritis, unspecified site; I25.2 Old myocardial infarction; M79.7 Fibromyalgia; Z90.49 Acquired absence of other specified parts of digestive tract; Z98.51 Tubal ligation status; F99 Mental disorder, not otherwise specified; Z20.822 Contact with and (suspected) exposure to COVID-19
CPT/HCPCS: 70496; 70553; 71045; 80048; 80053; 80061; 82962; 84484; 85025; 85610; 93005; 93306; 99291; G0378; J1644; J1815; J2405; J7050; Q9967; 36415-L1; 36415-TC; 70450; 70450-TC

== ENCOUNTER 2022-06-05 13:20 | Inpatient (IN) | payer OTHER ==
[~2022-06-05] VITALS: Ht 157.5 cm; Wt 72.5 kg
[~2022-06-05 13:20] MED LIST changes: +ALPR-707 PO; -ALPR0.5T8 PO; +DICL-208 PO; +FLUO-177 PO; -FLUO-191 PO; -IBUP-2070 PO; +METF-1211 PO; -METF-960 PO; +TIZA-330 PO; -TIZA4TAB6 PO; +TOPI25 PO
[2022-06-05] MEDS ORDERED: SODIUM CHLORIDE 0.9% 100 ML ONE (13:34)
[2022-06-05] MEDS ORDERED: IOHEXOL 350 MG/ML 75 ML VIAL ONE (13:34)
[2022-06-05 13:47] LABS: BASOPHILS % (AUTO) 0.8 % (0.0-2.0); EOSINOPHILS % (AUTO) 1.1 % (1.0-6.0); HEMATOCRIT 39.8 % (36-46); HEMOGLOBIN 13.4 g/dL (12.0-16.0); LYMPHOCYTES # (AUTO) 3.8 K/uL (1.0-4.8); LYMPHOCYTES % (AUTO) 34.5 % (22.0-44.0); MEAN CORPUSCULAR HEMOGLOBIN 27.7 pg (26.0-34.0); MEAN CORPUSCULAR HGB CONC 33.6 G/dL (31.0-37.0); MEAN CORPUSCULAR VOLUME 82 fL (80-100); MONOCYTES # (AUTO) 0.5 K/uL (0.1-1.0); MONOCYTES % (AUTO) 4.6 % (2.0-9.0); NEUTROPHILS # (AUTO) 6.5 K/uL (1.8-7.7); PLATELET COUNT (AUTO) 417 K/uL (150-450); RED BLOOD CELL COUNT(AUTO) 4.83 MIL/uL (4.00-5.20); RED CELL DISTRIBUTION WIDTH 13.9 % (11.5-14.5)
[2022-06-05 13:56] LABS: ANION GAP 7 mmol/L (8-16); CALCIUM, TOTAL 8.7 mg/dL (8.8-10.5); CARBON DIOXIDE 28 mmol/L (22-29); CHLORIDE 101 mmol/L (98-107); CREATININE 0.92 mg/dL (0.60-1.30); GLUCOSE,RANDOM 180 mg/dL (70-110); POTASSIUM 3.5 mmol/L (3.5-5.1); SODIUM SERUM 136 mmol/L (136-145); UREA NITROGEN, BLOOD 9 mg/dL (7-18)
[2022-06-05 13:58] LABS: GLOMERULAR FILTR. RATE CALC > 60 mL/min (>60)
[2022-06-05 13:59] LABS: INR 0.9 (0.9-1.1)
[2022-06-05 14:02] LABS: ALANINE AMINOTRANSFERASE 27 U/L (12-78); ALBUMIN 2.9 g/dL (3.4-5.0); ALKALINE PHOSPHATASE 148 U/L (46-116); ASPARTATE AMINOTRANSFERASE 14 U/L (15-37); BILIRUBIN,TOTAL 0.2 mg/dL (0.1-1.0); TOTAL PROTEIN, SERUM 7.6 g/dL (6.4-8.2)
[2022-06-05 14:05] LABS: B-TYPE NATRIURETIC PEPTIDE 7 pg/mL (0-100)
[2022-06-05] MEDS ORDERED: ALTEPLASE IV ONE ×2 (14:30)
[2022-06-05] MEDS ORDERED: WATER FOR INJECTION STERILE IV ONE ×2 (14:30)
[2022-06-05] MEDS ORDERED: ALTEPLASE PER STROKE PROTOCOL CLINICAL ONE (14:30)
[2022-06-05 15:00] LABS: COVID AG,FIA SOURCE NASOPHARYNGEAL
[2022-06-05] MEDS ORDERED: ONDANSETRON HCL 4 MG/2 ML VIAL IVP PRN (15:45)
[2022-06-05] MEDS ORDERED: ACETAMINOPHEN 325 MG TABLET PO PRN (15:45)
[2022-06-05 17:15] VITALS: BP 120/74
[2022-06-05] MEDS ORDERED: INSU100I26 SQ (18:21)
[2022-06-05] MEDS ORDERED: DULA1.5P SQ (18:21)
[2022-06-05] MEDS ORDERED: INSU100V SQ (18:21)
[2022-06-05] MEDS ORDERED: FLUO20CA36 PO (18:21)
[2022-06-05] MEDS ORDERED: GLUC3SPR NASAL (18:21)
[2022-06-05] MEDS ORDERED: PROP10TA73 PO (18:21)
[2022-06-05] MEDS ORDERED: SITA50 PO (18:21)
[2022-06-05] MEDS ORDERED: HYDR50CA7 PO (18:21)
[2022-06-05] MEDS ORDERED: PREG50 PO (18:21)
[2022-06-05 19:11] LABS: APPEARANCE,URINE CLEAR (CLEAR); BILIRUBIN,URINE NEGATIVE (NEGATIVE); GLUCOSE, URINE (UA) >=1000 mg/dL (NEGATIVE); KETONES,URINE NEGATIVE (NEGATIVE); LEUKOCYTE ESTERASE ,URINE NEGATIVE (NEGATIVE); NITRATE,URINE NEGATIVE (NEGATIVE); OCCULT BLOOD,URINE NEGATIVE (NEGATIVE); PH,URINE 5.5 (5.0-8.0); PROTEIN,URINE TRACE mg/dL (NEGATIVE); UROBILINOGEN,URINE <=1.0 mg/dL (<=1.0)
[2022-06-05 19:18] LABS: AMPHET/METH SCREEN,URINE NEGATIVE (NEGATIVE); BARBITURATE SCREEN, URINE NEGATIVE (NEGATIVE); BENZODIAZEPINES SCREEN,URINE POSITIVE (NEGATIVE); CANNABINOID SCREEN,URINE NEGATIVE (NEGATIVE); COCAINE SCREEN,URINE NEGATIVE (NEGATIVE); METHADONE SCREEN, URINE NEGATIVE (NEGATIVE); OPIATE SCREEN,URINE NEGATIVE (NEGATIVE)
[2022-06-05 19:21] LABS: PHENCYCLIDINE SCREEN,URINE NEGATIVE (NEGATIVE)
[2022-06-05 19:37] LABS: SPECIFIC GRAVITIY, URINE > 1.050 (1.003-1.030)
[2022-06-05 19:57] LABS: BACTERIA,URINE None Seen /HPF (None Seen)
[2022-06-05 19:58] LABS: RBC,URINE 0-2 /HPF (0-2)
[2022-06-05 20:00] VITALS: BP 112/76
[2022-06-05 21:01] LABS: GLUCOSE,POINT OF CARE 105 MG/DL (70-110)
[2022-06-06] VITALS: BP 101/74
[2022-06-06 04:00] VITALS: BP 110/71
[2022-06-06 06:01] LABS: GLUCOSE,POINT OF CARE 90 MG/DL (70-110)
[2022-06-06 07:46] LABS: GLUCOSE,POINT OF CARE 95 MG/DL (70-110)
[2022-06-06 08:00] VITALS: BP 104/74
[2022-06-06] MEDS ORDERED: HydrOXYzine PAMOATE 50 MG CAPSULE PO PRN (09:00)
[2022-06-06] MEDS ORDERED: PROPRANOLOL HCL 10 MG TABLET PO SCH (09:00)
[2022-06-06] MEDS: FLUoxetine HCL 20 MG CAPSULE PO SCH (09:27)
[2022-06-06] MEDS: ETHYL ALCOHOL 62% ANTISEPTIC NASAL SANITIZER 0.6 ML AMPUL NASAL SCH ×2 (09:27→20:53)
[2022-06-06] MEDS: SitaGLIPtin PHOSPHATE 50 MG TABLET PO SCH (09:27)
[2022-06-06] MEDS: TiZANidine HCL 4 MG TABLET PO SCH ×2 (09:28→20:54)
[2022-06-06] MEDS: PREGABALIN 50 MG CAPSULE PO SCH ×3 (09:43→20:54)
[2022-06-06] MEDS ORDERED: TRI115O TP (10:56)
[2022-06-06] MEDS ORDERED: NALT50TA PO (10:56)
[2022-06-06] MEDS ORDERED: EMPA25TA3 PO (10:56)
[2022-06-06] MEDS ORDERED: PNEUMOCOCCAL VACCINE POLYVALENT 0.5 ML VIAL [PPSV23] IM. ONE (11:00)
[2022-06-06] MEDS: ACETAMINOPHEN 325 MG TABLET PO PRN (11:59)
[2022-06-06 12:00] VITALS: BP 85/63
[2022-06-06] MEDS ORDERED: SODIUM CHLORIDE 0.9% 500 ML IV ONE (12:41)
[2022-06-06] MEDS ORDERED: SODIUM CHLORIDE 0.9% 250 ML IV ONE (12:45)
[2022-06-06] MEDS: SODIUM CHLORIDE 0.9% 500 ML IV SCH ×3 (12:48→19:47)
[2022-06-06 16:00] VITALS: BP 111/76
[2022-06-06] MEDS ORDERED: DEXTROSE 50%-WATER 25 GM/50 ML SYRINGE IVP PRN (18:15)
[2022-06-06 18:27] LABS: GLUCOSE,POINT OF CARE 168 MG/DL (70-110)
[2022-06-06 18:29] LABS: CHOL/HDL RATIO 4.6 (3.9-5.7)
[2022-06-06 19:21] LABS: EOSINOPHILS % (AUTO) 1.5 % (1.0-6.0); HEMOGLOBIN 12.7 g/dL (12.0-16.0); LYMPHOCYTES # (AUTO) 3.5 K/uL (1.0-4.8); LYMPHOCYTES % (AUTO) 34.5 % (22.0-44.0); MEAN CORPUSCULAR HEMOGLOBIN 27.5 pg (26.0-34.0); MEAN CORPUSCULAR HGB CONC 33.4 G/dL (31.0-37.0); MEAN CORPUSCULAR VOLUME 82 fL (80-100); MONOCYTES # (AUTO) 0.6 K/uL (0.1-1.0); MONOCYTES % (AUTO) 5.9 % (2.0-9.0); NEUTROPHILS # (AUTO) 5.8 K/uL (1.8-7.7); NEUTROPHILS % (AUTO) 57.1 % (40.0-70.0); PLATELET COUNT (AUTO) 386 K/uL (150-450); RED BLOOD CELL COUNT(AUTO) 4.62 MIL/uL (4.00-5.20); RED CELL DISTRIBUTION WIDTH 13.9 % (11.5-14.5)
[2022-06-06 19:28] LABS: ANION GAP 6 mmol/L (8-16); CALCIUM, TOTAL 8.9 mg/dL (8.8-10.5); CARBON DIOXIDE 28 mmol/L (22-29); CHLORIDE 103 mmol/L (98-107); CREATININE 0.67 mg/dL (0.60-1.30); GLUCOSE,RANDOM 177 mg/dL (70-110); POTASSIUM 3.4 mmol/L (3.5-5.1); SODIUM SERUM 137 mmol/L (136-145); UREA NITROGEN, BLOOD 12 mg/dL (7-18)
[2022-06-06 19:30] LABS: GLOMERULAR FILTR. RATE CALC > 60 mL/min (>60)
[2022-06-06 19:42] LABS: ALANINE AMINOTRANSFERASE 24 U/L (12-78); ALBUMIN 2.9 g/dL (3.4-5.0); ALKALINE PHOSPHATASE 123 U/L (46-116); ASPARTATE AMINOTRANSFERASE 13 U/L (15-37); BILIRUBIN,TOTAL 0.2 mg/dL (0.1-1.0); THYROID STIMULATING HORMONE 0.46 uIU/mL (0.36-3.74)
[2022-06-06 20:00] VITALS: BP 95/68
[2022-06-06] MEDS: ATORVASTATIN CALCIUM 40 MG TABLET PO SCH (20:54)
[2022-06-06] MEDS: INSULIN LISPRO 100 UNITS/ML SQ PRN (21:18)
[2022-06-06 22:21] LABS: GLUCOSE,POINT OF CARE 174 MG/DL (70-110)
[2022-06-07] VITALS: BP 99/61
[2022-06-07] MEDS: ACETAMINOPHEN 325 MG TABLET PO PRN ×3 (00:28→20:08)
[2022-06-07 04:00] VITALS: BP 105/71
[2022-06-07] MEDS: INSULIN LISPRO 100 UNITS/ML SQ PRN ×4 (06:04→20:11)
[2022-06-07 07:07] LABS: LDL CHOLESTEROL DIRECT 117 mg/dL (0-99)
[2022-06-07 07:41] LABS: GLUCOSE,POINT OF CARE 204 MG/DL (70-110)
[2022-06-07 08:00] VITALS: BP 129/76
[2022-06-07] MEDS: ETHYL ALCOHOL 62% ANTISEPTIC NASAL SANITIZER 0.6 ML AMPUL NASAL SCH ×2 (09:41→20:08)
[2022-06-07] MEDS: ASPIRIN 81 MG CHEWABLE TABLET PO SCH (09:42)
[2022-06-07] MEDS: SitaGLIPtin PHOSPHATE 50 MG TABLET PO SCH (09:42)
[2022-06-07] MEDS: TiZANidine HCL 4 MG TABLET PO SCH ×2 (09:42→21:19)
[2022-06-07] MEDS: PREGABALIN 50 MG CAPSULE PO SCH ×3 (09:42→20:08)
[2022-06-07] MEDS: FLUoxetine HCL 20 MG CAPSULE PO SCH (09:42)
[2022-06-07 12:00] VITALS: BP 94/64
[2022-06-07 12:21] LABS: GLUCOSE,POINT OF CARE 259 MG/DL (70-110)
[2022-06-07 16:00] VITALS: BP 112/74
[2022-06-07 17:00] LABS: BASOPHILS % (AUTO) 1.1 % (0.0-2.0); EOSINOPHILS % (AUTO) 1.6 % (1.0-6.0); HEMATOCRIT 39.2 % (36-46); HEMOGLOBIN 13.2 g/dL (12.0-16.0); LYMPHOCYTES # (AUTO) 3.6 K/uL (1.0-4.8); LYMPHOCYTES % (AUTO) 31.6 % (22.0-44.0); MEAN CORPUSCULAR HEMOGLOBIN 27.7 pg (26.0-34.0); MEAN CORPUSCULAR HGB CONC 33.6 G/dL (31.0-37.0); MEAN CORPUSCULAR VOLUME 82 fL (80-100); MONOCYTES # (AUTO) 0.5 K/uL (0.1-1.0); MONOCYTES % (AUTO) 4.7 % (2.0-9.0); PLATELET COUNT (AUTO) 398 K/uL (150-450); RED BLOOD CELL COUNT(AUTO) 4.75 MIL/uL (4.00-5.20); RED CELL DISTRIBUTION WIDTH 13.8 % (11.5-14.5)
[2022-06-07 17:07] LABS: ANION GAP 8 mmol/L (8-16); CARBON DIOXIDE 26 mmol/L (22-29); CHLORIDE 101 mmol/L (98-107); CREATININE 0.63 mg/dL (0.60-1.30); GLUCOSE,RANDOM 190 mg/dL (70-110); POTASSIUM 3.9 mmol/L (3.5-5.1); SODIUM SERUM 135 mmol/L (136-145); UREA NITROGEN, BLOOD 16 mg/dL (7-18)
[2022-06-07 17:12] LABS: GLOMERULAR FILTR. RATE CALC > 60 mL/min (>60)
[2022-06-07 17:13] LABS: ALANINE AMINOTRANSFERASE 23 U/L (12-78); ALBUMIN 2.8 g/dL (3.4-5.0); ALKALINE PHOSPHATASE 126 U/L (46-116); ASPARTATE AMINOTRANSFERASE 15 U/L (15-37); BILIRUBIN,TOTAL 0.1 mg/dL (0.1-1.0); TOTAL PROTEIN, SERUM 6.8 g/dL (6.4-8.2)
[2022-06-07 19:08] VITALS: BP 91/42
[2022-06-07] MEDS: ATORVASTATIN CALCIUM 40 MG TABLET PO SCH (20:09)
[2022-06-07 20:42] LABS: GLUCOSE,POINT OF CARE 175 MG/DL (70-110)
[2022-06-07 22:02] LABS: GLUCOMETER DEV NAME(LOC) 5S.2B; GLUCOSE,POINT OF CARE 185 MG/DL (70-110)
[2022-06-08] VITALS (7 sets, daily range): BP systolic 90–107; BP diastolic 42–76
[2022-06-08] MEDS: INSULIN LISPRO 100 UNITS/ML SQ PRN ×2 (06:23→11:39)
[2022-06-08] MEDS: ASPIRIN 81 MG CHEWABLE TABLET PO SCH (08:06)
[2022-06-08] MEDS: FLUoxetine HCL 20 MG CAPSULE PO SCH (08:06)
[2022-06-08] MEDS: PREGABALIN 50 MG CAPSULE PO SCH ×2 (08:06→15:58)
[2022-06-08] MEDS: ETHYL ALCOHOL 62% ANTISEPTIC NASAL SANITIZER 0.6 ML AMPUL NASAL SCH (08:06)
[2022-06-08] MEDS: SitaGLIPtin PHOSPHATE 50 MG TABLET PO SCH (08:06)
[2022-06-08] MEDS: TiZANidine HCL 4 MG TABLET PO SCH (08:07)
[2022-06-08 09:46] LABS: GLUCOMETER DEV NAME(LOC) 5N.1C; GLUCOSE,POINT OF CARE 192 MG/DL (70-110)
[2022-06-08] MEDS: ACETAMINOPHEN 325 MG TABLET PO PRN (11:44)
[2022-06-08 12:11] LABS: GLUCOMETER DEV NAME(LOC) 5N.1C; GLUCOSE,POINT OF CARE 263 MG/DL (70-110)
[2022-06-08] MEDS ORDERED: ASPI-1450 PO (16:22)
== END 2022-06-08 17:35 | disposition home or self-care (01) | DRG 45 ==
LOC: EMS 13:20 → ICU 15:04 → 5S 06-07 18:35
PROVIDERS: ADMIT Hospitalist; ATTEND Hospitalist
DX: I63.9 Cerebral infarction, unspecified (principal); E44.0 Moderate protein-calorie malnutrition; E11.40 Type 2 diabetes mellitus with diabetic neuropathy, unspecified; E11.65 Type 2 diabetes mellitus with hyperglycemia; G81.90 Hemiplegia, unspecified affecting unspecified side; F32.A Depression, unspecified; I25.2 Old myocardial infarction; M19.90 Unspecified osteoarthritis, unspecified site; M79.7 Fibromyalgia; G43.909 Migraine, unspecified, not intractable, without status migrainosus; M54.9 Dorsalgia, unspecified; G89.29 Other chronic pain; K21.9 Gastro-esophageal reflux disease without esophagitis; F41.9 Anxiety disorder, unspecified; R29.810 Facial weakness; M25.559 Pain in unspecified hip; Z68.29 Body mass index [BMI] 29.0-29.9, adult; Z86.73 Personal history of transient ischemic attack (TIA), and cerebral infarction without residual deficits; Z87.891 Personal history of nicotine dependence; Z90.710 Acquired absence of both cervix and uterus; Z98.51 Tubal ligation status; Z79.899 Other long term (current) drug therapy
CPT/HCPCS: 70496; 70498; 70551; 71045; 80053; 80061; 81001; 82948; 82962; 83036; 83721; 83735; 83880; 84443; 84484; 85025; 85610; 85730; 86850; 86900; 86901; 87081; 90732; 92610; 93005; 93306; 97116; 97162; 97165; 97530; 97535; 99291; G0378; G0480; J2997; J7040; J7050; Q9967; 36415-L1; 36415-TC; 70450; 70450-TC

== ENCOUNTER 2025-06-28 19:05 | Emergency (ER) | payer OTHER ==
[~2025-06-28] VITALS: Ht 160 cm; Wt 77.3 kg
[~2025-06-28 19:05] MED LIST changes: +ALBU18HF12 IH; -ALPR-707 PO; -BUPR-49 PO; -BUSP15 PO; +CHOL500043 PO; -DICL-208 PO; -DOCU-350 PO; +DULA3PEN SQ; +DULO60CA73 PO; -FLUO-177 PO; +FLUO-418 PO; +FLUT1BLS19 IH; +GLUC3SPR5 NASAL; -INSLAN SQ; -NITR0.4T50 SL; +OMEP10CA5 PO; -PREG75 PO; -TIZA-330 PO; -TOPI25 PO
[2025-06-28 19:09] VITALS: TEMP 97.9
[2025-06-28 19:33] LABS: PLATELET COUNT (AUTO) 368 K/uL (150-450); RED BLOOD CELL COUNT(AUTO) 4.90 MIL/uL (4.00-5.20); RED CELL DISTRIBUTION WIDTH 16.3 % (11.5-14.5); WHITE BLOOD COUNT (AUTO) 10.5 K/uL (4.5-11.0)
[2025-06-28 19:41] LABS: CALCIUM, TOTAL 9.4 mg/dL (8.8-10.5); CREATININE 0.88 mg/dL (0.60-1.30); GLOMERULAR FILTR. RATE CALC > 60 mL/min (>60); GLUCOSE,RANDOM 158 mg/dL (70-110); SODIUM SERUM 138 mmol/L (136-145); UREA NITROGEN, BLOOD 13 mg/dL (7-18)
[2025-06-28 19:51] LABS: TROPONIN I-HIGH SENSITIVITY Less Than 4 ng/L (<51)
[2025-06-28 21:19] LABS: APPEARANCE,URINE HAZY (CLEAR); GLUCOSE, URINE (UA) 70-100 mg/dL (NEGATIVE); LEUKOCYTE ESTERASE ,URINE NEGATIVE (NEGATIVE); NITRATE,URINE NEGATIVE (NEGATIVE); OCCULT BLOOD,URINE NEGATIVE (NEGATIVE); SPECIFIC GRAVITIY, URINE 1.036 (1.003-1.030)
[2025-06-28 21:29] LABS: SQUAMOUS EPITHELIAL CELL,UR Many /LPF (None Seen); YEAST,URINE Many /HPF (None Seen)
[2025-06-28] MEDS: SODIUM CHLORIDE 0.9% 1,000 ML IV ONE (21:50)
[2025-06-28] MEDS: KETOROLAC TROMETHAMINE 30 MG/ML VIAL IVP ONE (22:24)
[2025-06-28] MEDS: FLUCONAZOLE 150 MG TABLET PO ONE (23:20)
[2025-06-28 23:29] VITALS: BP 121/68; PULSE 77; RESP 18; O2SAT 98
== END 2025-06-28 23:38 | disposition home or self-care (01) ==
LOC: EMS 19:05
DX: R53.83 Other fatigue (principal); G89.29 Other chronic pain; M54.9 Dorsalgia, unspecified; B37.9 Candidiasis, unspecified; E11.9 Type 2 diabetes mellitus without complications; F32.A Depression, unspecified; F41.9 Anxiety disorder, unspecified; K21.9 Gastro-esophageal reflux disease without esophagitis; G43.909 Migraine, unspecified, not intractable, without status migrainosus; Z90.710 Acquired absence of both cervix and uterus; Z90.49 Acquired absence of other specified parts of digestive tract; Z79.82 Long term (current) use of aspirin; Z79.4 Long term (current) use of insulin; Z98.890 Other specified postprocedural states; Z79.51 Long term (current) use of inhaled steroids; Z79.899 Other long term (current) drug therapy; Z87.891 Personal history of nicotine dependence
CPT/HCPCS: 80048; 81001; 82550; 82962; 84484; 85025; 85610; 85730; 36415; 71045; 99285; 93005; 96361; 96374; J1885; J7030